=== PATIENT | female | born 1995 | race Caucasian/White ===

== ENCOUNTER 2016-11-05 13:47 | Observation (INO) ==
[2016-11-05] MEDS ORDERED: KETOROLAC 30 MG/1 ML VIAL IV STA (14:04)
[2016-11-05] MEDS ORDERED: METHOCARBAMOL INJ 500 MG in SODIUM CHLORIDE 0.9% 100 ML IV STA (14:04)
--- NOTE | 2016-11-05 14:08 | Emergency Department Note ---
Arrival - Arrival ED Nursing Triage Note: c/o lower back pain onset yesterday. pt had blood in stool onset friday Mode of Arrival: Ambulatory Limitations: No Limitations Source: Patient, RN Notes Reviewed - History of Present Illness Onset (ago): day(s) (1) Consistency: constant Severity: moderate, severe Quality: aching, sharp <Bismark Lugo - Last Filed: 11/05/16 15:48> <Tree Smalls - Last Filed: 11/05/16 17:16> - Arrival Chief Complaint: Back Time Seen by Provider: 11/05/16 14:03 - History of Present Illness HPI Narrative: Patient is a 21-year-old white female with history of low back pain which is aching and sharp. Pain is worse with change in position especially with bending or stooping. She does have some radiation into her lower extremities bilaterally. She denies any urinary retention or fecal incontinence. She denies any dysuria or urinary frequency. She has had some bright red blood in her stool and does complain of painful defecation. There is no history of chills or fever. She denies any CVA tenderness. Last normal menstrual period was 1 month ago. She is otherwise in good health. (Bismark Lugo) Home Medications: Home Medications Medication Instructions Recorded Confirmed Type Cholecalciferol (Vitamin D3) 5,000 unit PO DAILY 11/05/16 11/05/16 History [Vitamin D3] Folic Acid/Mv,Fe,Other Min [One 1 each PO DAILY 11/05/16 11/05/16 History Daily For Women Tablet] Review of System - Review of System 12 point system: reviewed and no additional remarkable complaints except as stated - Review of System Constitutional: Absent: chills, fever Gastrointestinal: Absent: abdominal pain, nausea, vomiting Genitourinary female: Absent: abnormal menses, dysuria, frequency, hematuria, urgency Musculoskeletal: Present: back pain, lower back pain, leg pain. Absent: arm pain Skin: Absent: rash, lesions Neurological: Absent: weakness, numbness <Bismark Lugo - Last Filed: 11/05/16 15:48> Medical,Surgical,& Family Hx - Medical History Medical History: noncontributory - Social History Smoking Status: Never smoker Frequency of Alcohol Use: None Type of Drug Use: None <Bismark Lugo - Last Filed: 11/05/16 15:48> Exam <BrittneyBismark Guzman - Last Filed: 11/05/16 15:48> <Tree Smalls - Last Filed: 11/05/16 17:16> Vital Signs: Vital Signs Temperature 98.0 F 11/05/16 13:50 Pulse Rate 65 11/05/16 16:00 Respiratory Rate 18 11/05/16 16:00 Blood Pressure 122/73 11/05/16 16:00 O2 Sat by Pulse Oximetry 99 11/05/16 16:00 GENERAL: This is a well-nourished well-developed white female in no apparent distress. VITAL SIGNS: Reviewed ABDOMEN: Abdomen is soft, nontender to palpation. There are no abdominal abnormal masses palpated. There is no organomegaly. Bowel sounds are present and active. Back: There is no evidence of abnormal lordosis or scoliosis. Patient has minimal tenderness to palpation over the sacral and lumbar areas bilaterally. There is no CVA tenderness. There is no area of overlying erythema or induration. There are no overlying rashes. Straight leg raise is positive. SKIN: Skin is warm and dry. No rash. EXTREMITIES: Patient has reproducible pain with flexion of the lumbar spine.. NEUROLOGIC: Awake alert and oriented 4. Cranial nerves II through XII are grossly intact. Motor is 5 over 5 in all extremities bilaterally. Deep tendon reflexes are 2+ and bilaterally equal. Sensation is within normal limits light touch. (Bismark Lugo) Course <Bismark Lugo - Last Filed: 11/05/16 15:48> - Consultations Time: 16:31 <Tree Smalls - Last Filed: 11/05/16 17:16> - Consultations Consultation #1: Dr. Benitez was consulted to see patient for possible appendicitis (Tree Smalls) Results - Labs CBC & BMP: 11/05/16 14:14 Lab Results: I have reviewed the patients labs - Diagnostic Findings Procedure: CT Abdomen and Pelvis: image reviewed by me, X-ray: image reviewed by me (Lumbosacral x-ray: No evidence of scoliosis or abnormal lordosis. No pathologic lesions. No fractures.) <Bismark Lugo - Last Filed: 11/05/16 15:48> - Labs CBC & BMP: 11/05/16 14:14 11/05/16 14:14 <Tree Smalls - Last Filed: 11/05/16 17:16> - Labs Labs: Laboratory Tests 11/05/16 14:14 Urine Test Negative (Bismark Lugo) Disposition Case discussed with: patient, patient's family <Bismark Lugo - Last Filed: 11/05/16 15:48> Case discussed with: patient, patient's family Time of Disposition: 17:16 <Tree Smalls - Last Filed: 11/05/16 17:16> Clinical Impression: Low back pain, Constipation, Abdominal pain, Possibly early appendicitis Disposition: Still a Patient Condition: Stable
[2016-11-05] MEDS ORDERED: METHOCARBAMOL 1,000 MG/10 ML VIAL ONE (14:16)
[2016-11-05] MEDS ORDERED: KETOROLAC 30 MG/1 ML VIAL ONE (14:16)
[2016-11-05 14:32] LABS: Basophils % 0.4 % (0.0-0.8); Eosinophils # 0.1 10*3/uL (0.0-0.87); Eosinophils % 1.6 % (0.00-10.9); Hematocrit 42.4 VOL% (35.7-47.0); Hemoglobin 14.6 GM/DL (12.0-16.0); Immature Granulocytes % 0.1 %; Immature Granulocytes Absolute 0.01 #; Lymphocytes # 2.7 10*3/uL (1.4-4.0); Lymphocytes % 39.2 % (21.3-54.2); Mean Corpuscular HGB Conc 34.4 GM/DL (32-36); Mean Corpuscular Hemoglobin 30 PG (27-34); Mean Corpuscular Volume 87.4 FL (87-102); Monocytes # 0.4 10*3/uL (0.11-0.8); Monocytes % 5.6 % (1.7-12.7); Neutrophils # 3.6 10*3/uL (1.4-7.4); Neutrophils % 53.1 % (38.7-73.9); Platelet Count 231 T/CUMM (130-400); Red Blood Count 4.85 MC/CUMM (3.8-5.5); Red Cell Distribution Width 11.5 % (9.3-17.3); White Blood Count 6.8 T/CUMM (4-12)
[2016-11-05 15:17] LABS: Apearance,Urine CLEAR (Clear); Bacteria,Urine Occasional /HPF (Few); Bilirubin,Urine Negative (Negative); Blood, Urine Negative (Negative); Glucose,Urine (UA) Negative (Negative); Ketones,Urine Negative (Negative); Mucus,Urine Occasional /LPF (Occasional); Nitrite,Urine Negative (Negative); Protein,Urine Negative; RBC,Urine 1 /HPF (0-4); Squamous Epithelial Cell,Urine Occasional /HPF (0-10); Urine Color Yellow (Yellow); Urine Specific Gravity 1.013 (1.001-1.035); Urine Urobilinogen < 2.0 EU/DL (0.2-1.0); WBC,Urine 1 /HPF (0-6)
--- NOTE | 2016-11-05 15:56 | XRay Report ---
Exam: XR lumbar spine complete 5 views Date: 11/05/2016 2:03 PM Indication: Low back pain Comparison: None Technical: AP lateral bilateral oblique coned-down image Findings: 5 lumbar vertebral segments are present. The vertebral body heights and disc spaces and posterior elements are otherwise intact. Minimal less than 5 degree levoscoliotic curve at the thoracolumbar junction. The liver shadow spleen and renal shadows are partially obscured. Moderate fecal debris present. Impression: 1. No fracture dislocation or significant discogenic disease 2. Moderate fecal debris PROCEDURE INTERPRETED AT [facility] DEPARTMENT OF RADIOLOGY Final Report Signed by: Dr. Bassam Mcintosh
--- NOTE | 2016-11-05 16:14 | CT Report ---
Exam: CT abdomen pelvis w con Date: 11/05/2016 3:47 PM Comparison: 06/12/2012 Indication: Back pain lower abdominal pain Total DLP: 683.1 mGy*cm Technical: No oral contrast administered. Images were obtained from the lung bases to the iliac crest continuation through the pelvis with 100 cc of Omnipaque 350 with axial sagittal coronal imaging available for review. Dose reduction was performed with decreasing kv and mA and automated exposure Findings: Lung bases: No obvious infiltrates or effusions the heart is normal in size. Liver and Spleen: Unremarkable Gallbladder and Pancreas: Unremarkable Adrenals: Unremarkable Kidneys: Both kidneys are equally perfused and demonstrate no evidence for obstructive uropathy. Stomach: Incomplete distended with air-fluid and debris Retroperitoneum: No enlarged lymph nodes. Aorta and IVC: No obvious aneurysm. The aorta iliac vessels and IVC are unremarkable. Bowel and Mesentery: Moderate stool and debris within the colon. There is some edema suspected in the right lower quadrant involving the region of the wall of the appendix. This area measures up to 8.2 mm. No evidence of diverticulosis or diverticulitis. Pelvis: Bladder: Incompletely distended with fluid Fluid: No free fluid identified. Lymph nodes: No enlarged lymph nodes. Pelvic organs: The uterus is demonstrated without focal abnormality. Bilateral prominence of the ovaries measuring 3.3 and 3.6 cm some cystic changes present. Osseous structures: No suspicious appearing osseous abnormalities noted. Impression: 1. Slight prominence of the appendix could represent a component of early appendicitis with mild inflammation suspected. 2. Bilateral ovarian cystic changes are also present without obvious free fluid or defined abscess at this time PROCEDURE INTERPRETED AT [facility] DEPARTMENT OF RADIOLOGY Final Report Signed by: Dr. Bassam Mcintosh
[2016-11-05 16:51] LABS: Albumin 4.2 G/DL (3.4-5.0); Bilirubin,Total 0.6 MG/DL (0.2-1.0); Calcium 9.9 MG/DL (8.5-10.1); Osmolality,Calculated 274.7 MOS/KG (273-304); Potassium 3.8 MMOL/L (3.5-5.1); Total Protein 7.7 G/DL (6.4-8.3)
--- NOTE | 2016-11-05 17:17 | General Surg History&Physical ---
Assessment and Plan (1) Low back pain Status: Acute Assessment and plan: This patient came in complaining of low back pain and she really does not have any classic features for appendicitis. She did have some tenderness on exam but is fairly minimal and definitely not returning for acute appendicitis necessarily. Her white blood cell count is normal she is afebrile. There is some trace leukocytes on her urinalysis so we will go ahead and get a urine culture. In order to determine what the underlying cause of her presentation is , she will be admitted for observation overnight with no antibiotics to see if she develops any symptoms that are more concerning for appendicitis. We will also get a GI consultation because of her painless rectal bleeding that she has been having and there is certainly a need to work this up at some point but acutely we just need to admit her for observation overnight to see what her exam and her labwork is like in the morning. Current Visit: Yes History of Present Illness Chief complaint: Abdominal pain History of present illness: Ms. Farias is a 21 year old female who developed lower back pain bilaterally in the paraspinal muscular area on Friday and also had some rectal bleeding at that time that was painless. She had persistent lower back pain and came to the ER today for evaluation. She denies any fevers or chills. No nausea or vomiting. No anorexia. She has not been having any diarrhea or constipation but has some watery stool at time with bloody discharge. She was evaluated in the ER with lab work and urinalysis which showed trace leukocytes but no overwhelming evidence of urinary tract infection. Her white blood cell count was normal and she had no left shift. CT scan of the abdomen and pelvis showed essentially a normal appendix but it was slightly prominent in size. There is no evidence of colitis on the CT scan. Home Medications Medication Instructions Recorded Confirmed Type Cholecalciferol (Vitamin D3) 5,000 unit PO DAILY 11/05/16 11/05/16 History [Vitamin D3] Folic Acid/Mv,Fe,Other Min [One 1 each PO DAILY 11/05/16 11/05/16 History Daily For Women Tablet] Medical,Surgical,& Family Hx - Social History Smoking Status: Never smoker Frequency of Alcohol Use: None Type of Drug Use: None Exam - Constitutional Vitals: Period Temp Pulse Resp BP Sys/Alvarado Pulse Ox Last 24 Hr 98.0 F-98.0 F 65-80 16-18 101-123/63-79 98-100 General appearance: no acute distress, over weight - Head Head exam: Present: normal inspection - Eye Eye exam: Present: EOMI Pupils: Present: LUCAS - ENT ENT exam: Present: normal exam Mouth exam: Present: normal external inspection, normal voice - Neck Neck exam: Present: normal inspection, trachea midline - Respiratory Respiratory exam: Present: clear to auscultation bilaterally. Absent: accessory muscle use, chest wall tenderness - Cardiovascular Cardiovascular exam: Present: RRR. Absent: systolic murmur, tachycardia - GI/Abdominal GI/Abdominal exam: Present: normal bowel sounds, tenderness, soft. Absent: guarding, rebound - Extremities Exam Extremities exam: Present: normal inspection, normal capillary refill - Back Exam Back exam: Present: normal inspection - Neurological Exam Neurological exam: Present: alert, oriented X3 Speech: Present: normal - Skin Skin exam: Present: normal color, warm - Constitutional Constitutional: Present: as per HPI - EENT Nose, mouth and throat: Present: as per HPI - Cardiovascular Cardiovascular: Present: as per HPI - Respiratory Respiratory: Present: as per HPI - Gastrointestinal Gastrointestinal: Present: as per HPI - Genitourinary Genitourinary: Present: as per HPI - Musculoskeletal Musculoskeletal: Present: as per HPI - Neurological Neurological: Present: as per HPI - Endocrine Endocrine: Present: as per HPI Hematologic/Lymphatic: Present: as per HPI Results - Labs CBC & BMP: 11/05/16 14:14 11/05/16 14:14 - Diagnostic Findings Procedure: CT Abdomen and Pelvis: image reviewed by me, report reviewed by me ( There is a slight prominence of the appendix but there is no periappendiceal inflammatory changes.)
[2016-11-05] MEDS ORDERED: KETOROLAC 15 MG/1 ML VIAL IV PRN (18:56)
[2016-11-05] MEDS ORDERED: ONDANSETRON 4 MG/2 ML VIAL IV PRN (18:56)
[2016-11-05] MEDS ORDERED: HYDROmorphone 2 MG/1 ML VIAL IV PRN (18:56)
[2016-11-05] MEDS ORDERED: PROMETHAZINE 25 MG/1 ML VIAL IM PRN (18:56)
[2016-11-05] MEDS ORDERED: ACETAMINOPHEN 325 MG TABLET PO PRN (18:56)
--- NOTE | 2016-11-05 19:35 | Ultrasound Report ---
Exam: US pelvic complete Date: 11/05/2016 5:33 PM Comparison: None Indication: Pelvic pain bilateral adnexal prominent Findings: Uterus: 5.9 x 2.5 x 3.5 cm. Endometrial echo stripe: 4 mm Right ovary: 26 x 19 x 17 mm. Normal color flow with small follicular cyst Left ovary: 30 x 18 x 26 mm. Normal color flow with small follicular cyst Free fluid: None Bladder: Unremarkable Impression: 1. Small tiny follicular cysts in the ovaries without free fluid Ultrasound images were stored and captured PROCEDURE INTERPRETED AT [facility] DEPARTMENT OF RADIOLOGY Final Report Signed by: Dr. Bassam Mcintosh
[2016-11-05] MEDS: LACTATED RINGERS 1,000 ML IV SCH (23:07)
[2016-11-06] MEDS: LACTATED RINGERS 1,000 ML IV SCH (03:59)
[2016-11-06 05:52] LABS: Basophils % 0.4 % (0.0-0.8); Eosinophils # 0.1 10*3/uL (0.0-0.87); Eosinophils % 1.7 % (0.00-10.9); Hematocrit 37.7 VOL% (35.7-47.0); Immature Granulocytes % 0.4 %; Immature Granulocytes Absolute 0.03 #; Lymphocytes # 3.2 10*3/uL (1.4-4.0); Lymphocytes % 42.5 % (21.3-54.2); Mean Corpuscular HGB Conc 32.9 GM/DL (32-36); Mean Corpuscular Hemoglobin 29 PG (27-34); Mean Corpuscular Volume 89.3 FL (87-102); Mean Platelet Volume 8.9 FL (9.6-12.0); Monocytes # 0.6 10*3/uL (0.11-0.8); Monocytes % 7.6 % (1.7-12.7); Neutrophils # 3.6 10*3/uL (1.4-7.4); Neutrophils % 47.4 % (38.7-73.9); Platelet Count 195 T/CUMM (130-400); Red Blood Count 4.22 MC/CUMM (3.8-5.5); Red Cell Distribution Width 11.7 % (9.3-17.3); White Blood Count 7.6 T/CUMM (4-12)
[2016-11-06 06:07] LABS: Hemoglobin 12.4 GM/DL (12.0-16.0)
--- NOTE | 2016-11-06 08:13 | General Surgery Progress Note ---
Assessment and Plan (1) Low back pain Status: Acute Assessment and plan: The patient's back pain is still present and her urine culture is pending. Her right lower quadrant symptoms are not convincing for appendicitis to me and she has definitely not gotten worse over the observation period. She has no fevers or white count. This is not consistent with appendicitis. The patient had a pelvic ultrasound that showed no torsion and small follicular cysts in both ovaries. I am going to feed her this morning and discharge her after lunch if she still doing well. Will follow up her urine culture but I do not think she needs to have surgery for appendicitis. I did discuss the small chance of her getting worse at home if she goes home today and she notes come back to the ER if this happens. Current Visit: Yes Subjective Patient reports: Present: no new complaints, still having pain, flatus, no bowel movement, afebrile. Absent: blood in stool Narrative: The patient denies any abdominal pain at this time. She still having low back pain bilaterally. She has no fevers and her white blood cell count is still normal. Exam - Constitutional Vitals: Period Temp Pulse Resp BP Sys/Alvarado Pulse Ox Last 24 Hr 97.6 F-98.7 F 58-70 16-18 107-120/65-85 91-99 General appearance: no acute distress, over weight - Head Head exam: Present: normal inspection, normocephalic - Eye Eye exam: Present: EOMI Pupils: Present: LUCAS - ENT ENT exam: Present: normal exam Mouth exam: Present: normal external inspection, normal voice - Neck Neck exam: Present: normal inspection, trachea midline - Respiratory Respiratory exam: Present: clear to auscultation bilaterally. Absent: accessory muscle use, chest wall tenderness - Cardiovascular Cardiovascular exam: Present: RRR. Absent: systolic murmur, tachycardia - GI/Abdominal GI/Abdominal exam: Present: normal bowel sounds, tenderness (Patient has minimal right lower quadrant tenderness without rebound or guarding. Rovsing sign is negative.), soft. Absent: ascites, distended, rebound - Extremities Exam Extremities exam: Present: normal inspection, normal capillary refill - Back Exam Back exam: Present: normal inspection - Neurological Exam Neurological exam: Present: alert, oriented X3 Speech: Present: normal - Skin Skin exam: Present: normal color, warm Results - Labs CBC & BMP: 11/06/16 05:17 11/05/16 14:14 Quality Measures - Stroke Symptom Onset Unknown: No
[2016-11-06] MEDS ORDERED: PANTOPRAZOLE 40 MG TABLET PO SCH (09:00)
[2016-11-06] MEDS ORDERED: CHOLECALCIFEROL 1,000 UNIT TABLET PO SCH (09:00)
[2016-11-06] MEDS ORDERED: MULTIVITAMIN (CENTRUM) TABLET PO SCH (09:00)
[2016-11-06 12:27] VITALS: BP 103/71
--- NOTE | 2016-11-06 13:23 | Discharge Summary ---
Hospital Course - Hospital Course Hospital Course: Pt admitted for observation for acute onset of abdominal pain. No findings indicating possible appendicitis or other intra-abdominal processes. Ovarian cyst may be cause of symptom - but no rupture or fluid in abd/pelvis. Pt with minimal evidence of UTI on UA but asymptomatic - will follow culture. She tolerated PO intake breaksfast and lunch today without abdominal pian, N/V/D. No complications. Diagnosis - Discharge Diagnosis (1) Abdominal pain Status: Acute Discharge Plan - Discharge Data Condition at Discharge: Stable Discharge Diet: advance to your usual diet Activity: resume usual activities as tolerated Hygiene: no restrictions Driving: no restrictions Contact your physician if you experience:: fever over 101, Difficulty voiding, Redness or swelling, Nausea/Vomiting, Shortness of breath (Recurrent abdominal or back pain), Bleeding - Discharge Medications Continue Folic Acid/Mv,Fe,Other Min [One Daily For Women Tablet] 1 each PO DAILY Cholecalciferol (Vitamin D3) [Vitamin D3] 5,000 unit PO DAILY - Follow Up or Referral Follow Up: Jens Benitez MD [Physician] - (as needed) - Forms/Instructions Exam - Constitutional Vitals: Period Temp Pulse Resp BP Sys/Alvarado Pulse Ox Last 24 Hr 97.6 F-98.7 F 58-93 16-20 102-120/60-85 91-100 General appearance: no acute distress - Respiratory Respiratory exam: Present: clear to auscultation bilaterally - Cardiovascular Cardiovascular exam: Present: regular rate and rhythm - GI/Abdominal GI/Abdominal exam: Present: normal bowel sounds, soft ((-)CVAT). Absent: distended, guarding, tenderness, rebound - Extremities Exam Extremities exam: Absent: calf tenderness, edema - Neurological Exam Neurological exam: Present: alert, oriented X3 - Skin Skin exam: Present: normal color, warm Discharge Results Labs on day of discharge: Labs from last 24 hours 11/06/16 05:17 WBC 7.6 RBC 4.22 Hgb 12.4 D Hct 37.7 MCV 89.3 MCH 29 MCHC 32.9 RDW 11.7 Plt Count 195 MPV 8.9 L Neut % (Auto) 47.4 Lymph % (Auto) 42.5 Kleberg % (Auto) 7.6 Eos % (Auto) 1.7 Baso % (Auto) 0.4 Neut # (Auto) 3.6 Lymph # (Auto) 3.2 Kleberg # (Auto) 0.6 Eos # (Auto) 0.1 Baso # (Auto) 0.0 Immature Gran % 0.4 Nucleated RBC % 0.0 Immature Gran # 0.03 Nucleated RBCs # 0.00 - Imaging and Cardiology Procedure: CT Abdomen and Pelvis: image reviewed by me (Images reviewed by Dr. Benitez - no convincing evidence of appendicitis. Bilateral ovarian cysts present - no free fluid of abd/pelvis.), Ultrasound: report reviewed by me (Ovarian cysts confirmed - no evidence of complication) DS: Provider Date of admission: 11/05/16 17:20 Primary care physician: Nonstaff Physician Attending physician on admission: Jens Benitez MD Discharging clinician: Nedra Bell PA-C
== END 2016-11-06 15:00 | disposition home or self-care (01) ==
LOC: EDUNIT# → EDBD → N.ED 13:47 → N.EDINP 13:47 → N.3E 18:51
PROVIDERS: ADMIT Surgery; ATTEND Surgery

== ENCOUNTER 2022-04-17 10:31 | Inpatient (IN) ==
[2022-04-17] MEDS ORDERED: MAGNESIUM SULF RIDER 4 GM/100 ML PREMIX IV ONE (10:41)
[2022-04-17] MEDS ORDERED: CALCIUM GLUCONATE RIDER 1,000 MG/50 ML PREMIX IV PRN (10:41)
[2022-04-17 11:07] LABS: Basophils % 0.2 % (0.0-0.8); Eosinophils % 0.3 % (0.00-10.9); Hematocrit 31.6 VOL% (35.7-47.0); Immature Granulocytes % 0.7 %; Immature Granulocytes Absolute 0.07 #; Lymphocytes # 1.7 10*3/uL (1.4-4.0); Lymphocytes % 16.8 % (21.3-54.2); Mean Corpuscular HGB Conc 34.8 GM/DL (32-36); Mean Corpuscular Volume 90.8 FL (87-102); Mean Platelet Volume 8.7 FL (9.6-12.0); Monocytes # 0.4 10*3/uL (0.11-0.8); Monocytes % 4.4 % (1.7-12.7); Neutrophils % 77.6 % (38.7-73.9); Platelet Count 264 T/CUMM (130-400); Red Blood Count 3.48 MC/CUMM (3.8-5.5); Red Cell Distribution Width 12.8 % (9.3-17.3)
[2022-04-17] MEDS: LACTATED RINGERS 1,000 ML IV SCH (11:16)
[2022-04-17] MEDS: BETAMETH SODIUM PHOS/ACETATE 30 MG/5 ML VIAL IM SCH (11:26)
[2022-04-17 11:33] LABS: Alanine Aminotransferase 19 U/L (13-56); Albumin 2.6 G/DL (3.4-5.0); Alkaline Phosphatase 89 U/L (45-117); Aspartate Amino Transferase 15 U/L (0-37); Bilirubin,Total < 0.39 MG/DL (0.20-1.00); Blood Urea Nitrogen 8 MG/DL (7-18); Calcium 8.7 MG/DL (8.5-10.1); Carbon Dioxide 25 MMOL/L (21-32); Chloride 108 MMOL/L (98-107); Glucose 129 MG/DL (74-106); Sodium 136 MMOL/L (136-145); Total Protein 6.5 G/DL (6.4-8.2)
[2022-04-17] MEDS: AMPICILLIN INJ 2,000 MG in SODIUM CHLORIDE 0.9% 100 ML IV SCH ×3 (11:35→22:56)
[2022-04-17] MEDS: MAGNESIUM SULF DRIP 40 GM/1,000 ML ML IV SCH (11:37)
[2022-04-17] MEDS: metroNIDAZOLE 500 MG TABLET PO SCH ×2 (14:03→21:16)
[2022-04-17] MEDS ORDERED: RHO(D) IMMUNE GLOBULIN 300 MCG SYRINGE IM ONE (17:28)
[2022-04-18] MEDS: ZALEPLON 5 MG CAPSULE PO ONE ×2 (01:15→11:19)
[2022-04-18] MEDS ORDERED: ZOLPIDEM 5 MG TABLET PO PRN (01:15)
[2022-04-18] MEDS: MAGNESIUM SULF DRIP 40 GM/1,000 ML ML IV SCH (05:01)
[2022-04-18] MEDS: LACTATED RINGERS 1,000 ML IV SCH (05:01)
[2022-04-18] MEDS: AMPICILLIN INJ 2,000 MG in SODIUM CHLORIDE 0.9% 100 ML IV SCH ×4 (05:02→23:39)
[2022-04-18] MEDS: metroNIDAZOLE 500 MG TABLET PO SCH ×2 (10:19→21:07)
[2022-04-18] MEDS: BETAMETH SODIUM PHOS/ACETATE 30 MG/5 ML VIAL IM SCH (11:02)
[2022-04-18] MEDS: ACETAMINOPHEN 325 MG TABLET PO PRN (20:36)
[2022-04-18] MEDS: ZALEPLON 5 MG CAPSULE PO PRN (21:07)
[2022-04-19] MEDS: LACTATED RINGERS 1,000 ML IV SCH (02:51)
[2022-04-19 04:48] LABS: Basophils % 0.1 % (0.0-0.8); Hematocrit 29.3 VOL% (35.7-47.0); Hemoglobin 9.7 GM/DL (12.0-16.0); Immature Granulocytes % 0.6 %; Immature Granulocytes Absolute 0.07 #; Lymphocytes # 1.2 10*3/uL (1.4-4.0); Lymphocytes % 10.8 % (21.3-54.2); Mean Corpuscular HGB Conc 33.1 GM/DL (32-36); Mean Corpuscular Volume 93.3 FL (87-102); Mean Platelet Volume 8.9 FL (9.6-12.0); Monocytes # 0.6 10*3/uL (0.11-0.8); Monocytes % 5.5 % (1.7-12.7); Platelet Count 245 T/CUMM (130-400); Red Blood Count 3.14 MC/CUMM (3.8-5.5); Red Cell Distribution Width 12.9 % (9.3-17.3); White Blood Count 11.4 T/CUMM (4-12)
[2022-04-19] MEDS: AMPICILLIN INJ 2,000 MG in SODIUM CHLORIDE 0.9% 100 ML IV SCH (06:03)
[2022-04-19] MEDS: LEVOTHYROXINE 137 MCG TABLET PO SCH (07:39)
[2022-04-19] MEDS: NIFEdipine 10 MG CAPSULE PO SCH ×4 (07:39→20:05)
[2022-04-19] MEDS: metroNIDAZOLE 500 MG TABLET PO SCH (09:20)
[2022-04-19] MEDS ORDERED: AZITHROMYCIN 250 MG TABLET PO ONE (13:13)
[2022-04-19] MEDS: MAGNESIUM SULF DRIP 40 GM/1,000 ML ML IV SCH (18:28)
[2022-04-19] MEDS: ZALEPLON 5 MG CAPSULE PO PRN (21:14)
[2022-04-19] MEDS ORDERED: DIPHENOXYLATE/ATROPINE 2.5-0.025 MG TABLET PO ONE (23:15)
[2022-04-20] MEDS: NIFEdipine 10 MG CAPSULE PO SCH ×4 (02:21→21:22)
[2022-04-20] MEDS: AMOXICILLIN 875 MG TABLET PO SCH ×2 (08:13→21:23)
[2022-04-20] MEDS: LEVOTHYROXINE 137 MCG TABLET PO SCH (08:15)
[2022-04-20] MEDS: MAGNESIUM SULF DRIP 40 GM/1,000 ML ML IV SCH (19:06)
[2022-04-20] MEDS: LACTATED RINGERS 1,000 ML IV SCH (21:23)
[2022-04-20] MEDS: ZALEPLON 5 MG CAPSULE PO PRN (21:55)
[2022-04-21] MEDS: NIFEdipine 10 MG CAPSULE PO SCH ×4 (02:47→20:01)
[2022-04-21] MEDS ORDERED: ACETAMINOPHEN 500 MG TABLET PO ONE (05:00)
[2022-04-21] MEDS: ACETAMINOPHEN 325 MG TABLET PO PRN (05:06)
[2022-04-21] MEDS: LEVOTHYROXINE 137 MCG TABLET PO SCH (08:12)
[2022-04-21] MEDS: AMOXICILLIN 875 MG TABLET PO SCH ×3 (09:09→21:05)
[2022-04-21] MEDS: LACTATED RINGERS 1,000 ML IV SCH (14:30)
[2022-04-21] MEDS ORDERED: DIPHENOXYLATE/ATROPINE 2.5-0.025 MG TABLET PO PRN (20:44)
[2022-04-21] MEDS: ZALEPLON 5 MG CAPSULE PO PRN (21:04)
[2022-04-22] MEDS: NIFEdipine 10 MG CAPSULE PO SCH ×4 (02:05→20:12)
[2022-04-22] MEDS ORDERED: DOCUSATE SODIUM 100 MG CAPSULE PO SCH (09:00)
[2022-04-22] MEDS: LEVOTHYROXINE 137 MCG TABLET PO SCH (09:44)
[2022-04-22] MEDS: FOLIC ACID 1 MG TABLET PO SCH (13:51)
[2022-04-22] MEDS: ZALEPLON 5 MG CAPSULE PO PRN (21:39)
[2022-04-22] MEDS: DOCUSATE SODIUM 100 MG CAPSULE PO SCH (23:05)
[2022-04-23] MEDS: NIFEdipine 10 MG CAPSULE PO SCH ×4 (01:50→20:33)
[2022-04-23] MEDS: LEVOTHYROXINE 137 MCG TABLET PO SCH (08:24)
[2022-04-23] MEDS: FOLIC ACID 1 MG TABLET PO SCH (16:53)
[2022-04-23] MEDS: DOCUSATE SODIUM 100 MG CAPSULE PO SCH (17:14)
[2022-04-24] MEDS: DOCUSATE SODIUM 100 MG CAPSULE PO SCH ×3 (01:20→20:27)
[2022-04-24] MEDS: NIFEdipine 10 MG CAPSULE PO SCH ×5 (01:29→20:24)
[2022-04-24] MEDS: LEVOTHYROXINE 137 MCG TABLET PO SCH (09:30)
[2022-04-24] MEDS: ACETAMINOPHEN 325 MG TABLET PO PRN (12:35)
[2022-04-24] MEDS: FOLIC ACID 1 MG TABLET PO SCH (20:24)
[2022-04-24] MEDS ORDERED: DOCUSATE SODIUM 100 MG CAPSULE PO SCH (21:00)
[2022-04-25] MEDS: NIFEdipine 10 MG CAPSULE PO SCH ×6 (00:07→20:39)
[2022-04-25] MEDS: DOCUSATE SODIUM 100 MG CAPSULE PO SCH ×2 (09:03→20:44)
[2022-04-25] MEDS: FOLIC ACID 1 MG TABLET PO SCH (09:04)
[2022-04-25] MEDS: LEVOTHYROXINE 137 MCG TABLET PO SCH (09:05)
[2022-04-26] MEDS: NIFEdipine 10 MG CAPSULE PO SCH ×7 (00:17→22:31)
[2022-04-26] MEDS: FOLIC ACID 1 MG TABLET PO SCH (08:23)
[2022-04-26] MEDS: LEVOTHYROXINE 137 MCG TABLET PO SCH (08:23)
[2022-04-26] MEDS: DOCUSATE SODIUM 100 MG CAPSULE PO SCH ×2 (08:23→20:40)
[2022-04-26] MEDS: ACETAMINOPHEN 325 MG TABLET PO PRN (16:16)
[2022-04-26] MEDS ORDERED: BUTORPHANOL 1 MG/ML VIAL IV ONE (18:37)
[2022-04-26] MEDS ORDERED: LACTATED RINGERS 1,000 ML IV ONE (18:38)
[2022-04-26] MEDS ORDERED: ONDANSETRON 4 MG/2 ML VIAL IV PRN (19:04)
[2022-04-26] MEDS ORDERED: INDOMETHACIN 50 MG CAPSULE PO ONE (22:30)
[2022-04-26] MEDS ORDERED: INDOMETHACIN 25 MG CAPSULE PO ONE (23:00)
[2022-04-27] MEDS: NIFEdipine 10 MG CAPSULE PO SCH ×8 (02:31→23:59)
[2022-04-27] MEDS: INDOMETHACIN 25 MG CAPSULE PO SCH ×4 (04:44→22:00)
[2022-04-27] MEDS: SUCRALFATE 1 GM TABLET PO SCH ×3 (08:12→17:20)
[2022-04-27] MEDS: FOLIC ACID 1 MG TABLET PO SCH (09:22)
[2022-04-27] MEDS: DOCUSATE SODIUM 100 MG CAPSULE PO SCH ×2 (09:23→21:03)
[2022-04-27] MEDS: LEVOTHYROXINE 137 MCG TABLET PO SCH (09:27)
[2022-04-28] MEDS: NIFEdipine 10 MG CAPSULE PO SCH ×8 (02:59→23:56)
[2022-04-28] MEDS: INDOMETHACIN 25 MG CAPSULE PO SCH ×4 (04:00→22:00)
[2022-04-28] MEDS: SUCRALFATE 1 GM TABLET PO SCH ×3 (07:38→16:15)
[2022-04-28] MEDS: LEVOTHYROXINE 137 MCG TABLET PO SCH (09:00)
[2022-04-28] MEDS: DOCUSATE SODIUM 100 MG CAPSULE PO SCH ×2 (09:00→21:00)
[2022-04-28] MEDS: FOLIC ACID 1 MG TABLET PO SCH (09:00)
[2022-04-28] MEDS: POLYETHYLENE GLYCOL POWDER 17 GM PACK PO PRN (16:17)
[2022-04-29] MEDS: NIFEdipine 10 MG CAPSULE PO SCH ×8 (03:01→23:32)
[2022-04-29] MEDS: INDOMETHACIN 25 MG CAPSULE PO SCH ×2 (04:01→09:21)
[2022-04-29] MEDS: SUCRALFATE 1 GM TABLET PO SCH ×3 (09:21→18:05)
[2022-04-29] MEDS: FOLIC ACID 1 MG TABLET PO SCH (09:21)
[2022-04-29] MEDS: DOCUSATE SODIUM 100 MG CAPSULE PO SCH ×2 (09:25→20:16)
[2022-04-29] MEDS: LEVOTHYROXINE 137 MCG TABLET PO SCH (11:55)
[2022-04-30] MEDS ORDERED: BETAMETH SODIUM PHOS/ACETATE 30 MG/5 ML VIAL IM ONE (02:15)
[2022-04-30] MEDS: NIFEdipine 10 MG CAPSULE PO SCH ×7 (02:46→23:46)
[2022-04-30] MEDS: LEVOTHYROXINE 137 MCG TABLET PO SCH (08:02)
[2022-04-30] MEDS: DOCUSATE SODIUM 100 MG CAPSULE PO SCH ×2 (08:04→22:03)
[2022-04-30] MEDS: FOLIC ACID 1 MG TABLET PO SCH (08:04)
[2022-04-30] MEDS ORDERED: TERBUTALINE 1 MG/1 ML VIAL SUBCUT SCH (10:00)
[2022-04-30] MEDS ORDERED: TERBUTALINE 1 MG/1 ML VIAL PO SCH (10:30)
[2022-04-30] MEDS: TERBUTALINE 5 MG PO SCH ×3 (13:58→21:56)
[2022-04-30] MEDS: ZALEPLON 5 MG CAPSULE PO PRN (21:56)
[2022-05-01] MEDS: TERBUTALINE 5 MG PO SCH ×6 (01:43→21:48)
[2022-05-01] MEDS: NIFEdipine 10 MG CAPSULE PO SCH ×6 (03:53→23:36)
[2022-05-01] MEDS: FOLIC ACID 1 MG TABLET PO SCH ×2 (07:51→11:57)
[2022-05-01] MEDS: LEVOTHYROXINE 137 MCG TABLET PO SCH (07:51)
[2022-05-01] MEDS: DOCUSATE SODIUM 100 MG CAPSULE PO SCH (08:56)
[2022-05-01] MEDS: ZALEPLON 5 MG CAPSULE PO PRN (21:01)
[2022-05-02] MEDS: TERBUTALINE 5 MG PO SCH (01:59)
[2022-05-02] MEDS: NIFEdipine 10 MG CAPSULE PO SCH (03:35)
[2022-05-02] MEDS: DOCUSATE SODIUM 100 MG CAPSULE PO SCH ×3 (04:09→23:15)
[2022-05-02] MEDS ORDERED: LACTATED RINGERS 1,000 ML IV ONE ×2 (04:14→05:14)
[2022-05-02] MEDS ORDERED: FAMOTIDINE 20 MG/2 ML VIAL IV ONE (04:14)
[2022-05-02] MEDS ORDERED: CITRIC ACID/SODIUM CITRATE 30 ML UDCUP PO ONE ×2 (04:14→04:58)
[2022-05-02] MEDS ORDERED: CITRIC ACID/SODIUM CITRATE 30 ML UDCUP ONE (04:15)
[2022-05-02] MEDS ORDERED: SODIUM CHLORIDE 0.9% 0 ML IV ONE (04:26)
[2022-05-02] MEDS ORDERED: miSOPROStoL 200 MCG TABLET ONE (04:26)
[2022-05-02] MEDS ORDERED: TRANEXAMIC ACID 1,000 MG/10 ML VIAL ONE (04:26)
[2022-05-02] MEDS ORDERED: OXYTOCIN/LR 20 UNIT/1,000 ML BAG IV ONE ×3 (04:26→06:03)
[2022-05-02] MEDS ORDERED: CARBOPROST TROMETHAMINE 250 MCG/ML AMP IM ONE (04:27)
[2022-05-02] MEDS ORDERED: METHYLERGONOVINE 0.2 MG/1 ML AMP ONE (04:27)
[2022-05-02] MEDS ORDERED: BUPIVACAINE SPINAL 0.75% 2 ML AMP SPINAL ONE (04:32)
[2022-05-02 04:33] LABS: Basophils % 0.2 % (0.0-0.8); Eosinophils % 0.2 % (0.00-10.9); Hematocrit 30.4 VOL% (35.7-47.0); Hemoglobin 10.6 GM/DL (12.0-16.0); Immature Granulocytes % 0.5 %; Immature Granulocytes Absolute 0.06 #; Lymphocytes # 1.9 10*3/uL (1.4-4.0); Lymphocytes % 17.2 % (21.3-54.2); Mean Corpuscular HGB Conc 34.9 GM/DL (32-36); Mean Corpuscular Volume 89.4 FL (87-102); Mean Platelet Volume 8.3 FL (9.6-12.0); Monocytes # 0.7 10*3/uL (0.11-0.8); Monocytes % 6.3 % (1.7-12.7); Neutrophils % 75.6 % (38.7-73.9); Platelet Count 308 T/CUMM (130-400); Red Cell Distribution Width 12.5 % (9.3-17.3); White Blood Count 11.3 T/CUMM (4-12)
[2022-05-02] MEDS ORDERED: buprenorphine HCL 0.3 MG/ML VIAL ONE (04:33)
[2022-05-02] MEDS ORDERED: ceFAZolin 2,000 MG/50 ML DUPLEX IV ONE (04:45)
[2022-05-02] MEDS ORDERED: miSOPROStoL 200 MCG TABLET RECTAL PRN (04:58)
[2022-05-02] MEDS ORDERED: METHYLERGONOVINE 0.2 MG/1 ML AMP IM PRN (04:58)
[2022-05-02] MEDS ORDERED: CARBOPROST TROMETHAMINE 250 MCG/ML AMP IM PRN (04:58)
[2022-05-02] MEDS ORDERED: TRANEXAMIC ACID 1,000 MG in SODIUM CHLORIDE 0.9% 100 ML IV PRN (04:58)
[2022-05-02] MEDS ORDERED: LACTATED RINGERS 1,000 ML IV SCH ×2 (05:00→06:30)
[2022-05-02] MEDS ORDERED: ONDANSETRON 4 MG/2 ML VIAL ONE (05:14)
[2022-05-02] MEDS ORDERED: KETOROLAC 30 MG/1 ML VIAL ONE (05:14)
[2022-05-02] MEDS ORDERED: METOCLOPRAMIDE 10 MG/2 ML VIAL ONE (05:14)
[2022-05-02 05:28] LABS: Bacteria,Urine Occasional /HPF (Few); Glucose,Urine (UA) Negative (Negative); Mucus,Urine Occasional /LPF (Occasional); Protein,Urine Negative (Negative); RBC,Urine <1 /HPF (0-4); Squamous Epithelial Cell,Urine Occasional /HPF (0-10); Urine Appearance Clear (Clear); Urine Color Yellow (Yellow); Urine Specific Gravity 1.015 (1.001-1.035)
[2022-05-02 05:29] LABS: Bilirubin,Urine Negative (Negative); Blood, Urine Negative (Negative); Ketones,Urine >160 mg/dL (Negative); Nitrite,Urine Negative (Negative); Urine Urobilinogen 0.2 eU/dL (<2.0)
[2022-05-02 05:40] LABS: Cord Venous Blood HCO3 22.8 MMOL/L; Cord Venous Blood PCO2 39.8 MMHG; Cord Venous Blood PO2 37.1
[2022-05-02 05:42] LABS: Cord Arterial Blood HCO3 22.4 MMOL/L
[2022-05-02 05:45] LABS: Cord Venous Blood HCO3 23.1 MMOL/L; Cord Venous Blood PCO2 45.7 MMHG; Cord Venous Blood PO2 20.8
[2022-05-02] MEDS ORDERED: ONDANSETRON 4 MG/2 ML VIAL IV PRN (06:03)
[2022-05-02] MEDS ORDERED: SIMETHICONE CHEW 80 MG TABLET PO PRN (06:03)
[2022-05-02] MEDS ORDERED: ACETAMINOPHEN 325 MG TABLET PO PRN (06:03)
[2022-05-02] MEDS ORDERED: MAGNESIUM HYDROXIDE SUSP 30 ML UDCUP PO PRN (06:03)
[2022-05-02] MEDS ORDERED: RHO(D) IMMUNE GLOBULIN 300 MCG SYRINGE IM ONE (06:30)
[2022-05-02] MEDS: LEVOTHYROXINE 137 MCG TABLET PO SCH (07:58)
[2022-05-02] MEDS: ACETAMINOPHEN 500 MG TABLET PO SCH ×3 (07:58→20:20)
[2022-05-02] MEDS ORDERED: DOCUSATE SODIUM 100 MG CAPSULE PO SCH (09:00)
[2022-05-02] MEDS: FOLIC ACID 1 MG TABLET PO SCH (09:00)
[2022-05-02] MEDS: MULTIVITAMIN (PRENATAL) TABLET PO SCH (09:00)
[2022-05-02] MEDS: KETOROLAC 30 MG/1 ML VIAL IV SCH ×4 (11:54→23:14)
[2022-05-03 06:02] LABS: Basophils % 0.3 % (0.0-0.8); Eosinophils # 0.1 10*3/uL (0.0-0.87); Eosinophils % 0.9 % (0.00-10.9); Hematocrit 29.5 VOL% (35.7-47.0); Hemoglobin 9.9 GM/DL (12.0-16.0); Immature Granulocytes % 0.6 %; Immature Granulocytes Absolute 0.06 #; Lymphocytes # 1.5 10*3/uL (1.4-4.0); Lymphocytes % 14.2 % (21.3-54.2); Mean Corpuscular HGB Conc 33.6 GM/DL (32-36); Mean Corpuscular Volume 92.5 FL (87-102); Mean Platelet Volume 8.2 FL (9.6-12.0); Monocytes # 0.7 10*3/uL (0.11-0.8); Monocytes % 6.5 % (1.7-12.7); Neutrophils % 77.5 % (38.7-73.9); Platelet Count 276 T/CUMM (130-400); Red Blood Count 3.19 MC/CUMM (3.8-5.5); Red Cell Distribution Width 12.6 % (9.3-17.3); White Blood Count 10.2 T/CUMM (4-12)
[2022-05-03] MEDS: POLYETHYLENE GLYCOL POWDER 17 GM PACK PO PRN (10:15)
[2022-05-03] MEDS: LEVOTHYROXINE 137 MCG TABLET PO SCH (10:17)
[2022-05-03] MEDS: MULTIVITAMIN (PRENATAL) TABLET PO SCH (10:17)
[2022-05-03] MEDS: DOCUSATE SODIUM 100 MG CAPSULE PO SCH ×2 (10:17→20:52)
[2022-05-03] MEDS: FOLIC ACID 1 MG TABLET PO SCH (10:18)
[2022-05-03] MEDS: IBUPROFEN 800 MG TABLET PO PRN ×2 (12:42→20:56)
[2022-05-04] MEDS: IBUPROFEN 800 MG TABLET PO PRN ×2 (04:59→11:55)
[2022-05-04] MEDS: LEVOTHYROXINE 137 MCG TABLET PO SCH (09:02)
[2022-05-04] MEDS: MULTIVITAMIN (PRENATAL) TABLET PO SCH (09:02)
[2022-05-04] MEDS: FOLIC ACID 1 MG TABLET PO SCH (09:02)
[2022-05-04] MEDS: DOCUSATE SODIUM 100 MG CAPSULE PO SCH (09:02)
[2022-05-04 09:49] VITALS: BP 117/72
[2022-05-04] MEDS ORDERED: RHO(D) IMMUNE GLOBULIN 300 MCG SYRINGE IM ONE (10:39)
[2022-05-04] MEDS ORDERED: DIPH/TET/ACEL PERT BOOSTER VACCINE 0.5 ML VIAL IM ONE (12:49)
== END 2022-05-04 13:30 | disposition home or self-care (01) | DRG 786 ==
LOC: N.LDOUT 10:31 → N.LD 10:33 → N.OB 04-22 08:27 → N.LD 04-26 22:09 → N.OB 04-27 11:00 → N.LD 04-30 02:29 → N.OB 05-02 08:32
PROVIDERS: ADMIT Specialist; ATTEND Obstetrics & Gynecology
PROC: LDCSECT (ICD-10-PCS; 2022-05-02 04:35)